=== PATIENT | male | born 1995 ===

== ENCOUNTER 2017-11-08 01:19 | Emergency (ER) | payer OTHER ==
[2017-11-08 01:24] VITALS: BMI 18.0
[2017-11-08 01:28] VITALS: RESP 18; O2SAT 100
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
[2017-11-08 03:59] VITALS: BP 122/86; PULSE 99; TEMP 98.2
== END 2017-11-08 02:50 | disposition home or self-care (01) ==
LOC: H.ER 01:19 → EDBD 01:19 → H.ER 02:50
DX: T51.91XA Toxic effect of unspecified alcohol, accidental (unintentional), initial encounter (principal); F10.129 Alcohol abuse with intoxication, unspecified